=== PATIENT | male | born 1960 | race Caucasian/White ===

== ENCOUNTER 2019-06-08 15:10 | Emergency (ER) | payer MEDICARE, OTHER, SELFPAY ==
[~2019-06-08] VITALS: Ht 182.9 cm; Wt 76.0 kg
--- NOTE | 2019-06-08 15:44 | NUR ---
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
--- NOTE | 2019-06-08 15:45 | NUR ---
ASSUMING CARE OF PATIENT. DR. ALCARAZ AT BEDSIDE.
[2019-06-08 16:01] LABS: BASOPHILS # (AUTO) 0.01 x10^3/uL (0-0.1); BASOPHILS % (AUTO) 0 % (0-1); EOSINOPHILS # (AUTO) 0.04 x10^3/uL (0-0.4); EOSINOPHILS % (AUTO) 1 % (1-7); LYMPHOCYTES # (AUTO) 1.24 x10^3/uL (1-3.4); LYMPHOCYTES % (AUTO) 14 % (22-44); MD NO; MEAN CORPUSCULAR HEMOGLOBIN 31.2 pg (27.5-34.5); MEAN CORPUSCULAR HGB CONC 33.2 g/dL (33.2-36.2); MEAN CORPUSCULAR VOLUME 93.9 fL (81-97); MEAN PLATELET VOLUME 8.4 fL (7.4-10.4); MONOCYTES # (AUTO) 0.65 x10^3/uL (0.2-0.8); MONOCYTES % (AUTO) 7 % (2-9); NEUTROPHILS # (AUTO) 7.24 x10^3/uL (1.8-6.8); NEUTROPHILS % (AUTO) 79 % (42-75); PLATELET COUNT 213 x10^3/uL (130-400); RED CELL DISTRIBUTION WIDTH 14.2 % (9.4-14.8)
[2019-06-08 16:14] LABS: ALBUMIN 4.5 g/dL (3.4-5.0); ANION GAP 8 mmol/L (5-15); CALCIUM 9.6 mg/dL (8.5-10.1); CHLORIDE 112 mmol/L (98-107)
[2019-06-08 16:18] LABS: ALANINE AMINOTRANSFERASE 99 U/L (12-78); ALKALINE PHOSPHATASE 76 U/L (45-117); BILIRUBIN,TOTAL 0.7 mg/dL (0.2-1.0); TOTAL PROTEIN 8.2 g/dL (6.4-8.2)
[2019-06-08] MEDS ORDERED: LIDOCAINE 2%,20 ML JEL.PF.APP MM ONE (16:46)
--- NOTE | 2019-06-08 17:26 | NUR ---
PT UNABLE TO VOID TODAY. BLADDER SCAN PERFORMED WITH READING OF >999ML. ALCANTARA CATHETER PLACED WITH GOOD URINE OUPUT OF GREATER THAN ONE LITER.
--- NOTE | 2019-06-08 17:35 | NUR ---
ALCANTARA CATHETER PLACED. PATIENT REPORTS RELIEF OF PAIN.
[2019-06-08 18:09] LABS: MICROSCOPIC INDICATED
[2019-06-08 18:11] LABS: CULTURE INDICATED? NO
--- NOTE | 2019-06-08 19:02 | NUR ---
SBAR HAND-OFF REPORT TO RNs HORACIO AND BIJAL.
[2019-06-08 19:17] VITALS: BP 148/78
--- NOTE | 2019-06-08 19:46 | NUR ---
DC instructions and rx reviewed with pt and spouse, both verbalized understanding.
== END 2019-06-08 19:52 | disposition home or self-care (01) ==
LOC: ED 19:45
DX: N13.2 Hydronephrosis with renal and ureteral calculous obstruction (principal); N40.1 Benign prostatic hyperplasia with lower urinary tract symptoms; R33.8 Other retention of urine; R31.9 Hematuria, unspecified; L81.9 Disorder of pigmentation, unspecified
CPT/HCPCS: 36415; 51702; 74176; 80053; 81001; 85025; 99284

== ENCOUNTER 2019-06-23 14:22 | Day surgery (SDC) | payer MEDICARE, MEDICAID ==
[~2019-06-23] VITALS: Ht 182.9 cm; Wt 72.3 kg
[2019-06-23] MEDS ORDERED: LACTATED RINGERS 1,000 ML IV SCH (14:49)
[2019-06-23] MEDS ORDERED: NAPR-685 PO (14:54)
[2019-06-23] MEDS ORDERED: TAMS-11 PO (14:54)
[2019-06-23] MEDS ORDERED: HYDR-3237 PO (14:54)
[2019-06-23] MEDS ORDERED: SULF1TAB24 PO (14:54)
[2019-06-23 14:58] VITALS: BP 170/96
[2019-06-23] MEDS ORDERED: MIDAZOLAM 1 MG/ML, 2ML ONE (15:58)
[2019-06-23] MEDS ORDERED: FENTANYL PF 100 MCG/2ML ONE ×3 (15:58→16:43)
[2019-06-23] MEDS ORDERED: CEFTRIAXONE 1,000 MG ONE (16:10)
[2019-06-23] MEDS ORDERED: PROPOFOL 10 MG/ML, 20ML ONE (16:28)
[2019-06-23] MEDS ORDERED: LIDOCAINE-MPF 2% ,5ML ONE (16:28)
[2019-06-23] MEDS ORDERED: DEXAMETHASONE 4 MG/ML, 1ML ONE ×2 (16:28)
[2019-06-23] MEDS ORDERED: ONDANSETRON 2MG/ML, 2ML ONE (16:28)
[2019-06-23] MEDS ORDERED: PROMETHAZINE 25 MG/ML, 1ML IV PRN (16:30)
[2019-06-23] MEDS ORDERED: EPHEDRINE 50 MG/ML, 1ML IVPush PRN (16:30)
[2019-06-23] MEDS ORDERED: LABETALOL 5MG/ML, 20ML IV PRN (16:30)
[2019-06-23] MEDS ORDERED: OXYcodone 5 MG/5 ML ORAL.SOL UDC PO PRN (16:30)
[2019-06-23] MEDS ORDERED: ONDANSETRON 2MG/ML, 2ML IV PRN (16:30)
[2019-06-23] MEDS ORDERED: HYDROmorphone 2 MG/ML, 1ML IVPush PRN (16:30)
[2019-06-23] MEDS ORDERED: FENTANYL PF 100 MCG/2ML IV PRN (16:30)
[2019-06-23] MEDS ORDERED: MEPERIDINE/PF 25MG/ML,1ML IVPush PRN (16:30)
[2019-06-23] MEDS ORDERED: hydrALAzine 20 MG/ML, 1ML IV PRN (16:30)
[2019-06-23] MEDS ORDERED: ACETAMINOPHEN 325 MG TABLET PO PRN (16:30)
[2019-06-23] MEDS ORDERED: OMNIPAQUE 350 MG/ML, 50 ML BOTTLE ONE (16:34)
== END 2019-06-23 18:45 | disposition home or self-care (01) ==
LOC: OR 14:22
PROVIDERS: ATTEND Urology
DX: N21.0 Calculus in bladder (principal); N40.1 Benign prostatic hyperplasia with lower urinary tract symptoms; R33.8 Other retention of urine; G31.84 Mild cognitive impairment of uncertain or unknown etiology; F17.210 Nicotine dependence, cigarettes, uncomplicated; Z79.891 Long term (current) use of opiate analgesic; Z79.899 Other long term (current) drug therapy; Z87.442 Personal history of urinary calculi
CPT/HCPCS: 52317; 74420; 88300; 93005; C1758; C1769; C2625; J0696; J1100; J2250; J2405; J2704; J3010; J7120; Q9967